=== PATIENT | female | born 1990 | race Caucasian/White ===

== ENCOUNTER 2018-10-28 20:34 | Emergency (ER) | payer MEDICAID ==
[~2018-10-28] VITALS: Ht 154.9 cm; Wt 59.0 kg
[2018-10-28 20:45] VITALS: BP 128/97
[2018-10-28] MEDS ORDERED: AMOX500C PO (21:02)
--- NOTE | 2018-10-28 21:03 | PHYS DOC ---
Adult General Chief Complaint Chief Complaint: DENTAL PROBLEM HPI HPI Patient is a 28 year old female who presents with dental pain to her upper left gum. The patient has braces in place. She sees [facility] for her orthodontia. She states that she is aware that she has a bad tooth. She denies fever or headache. (LISSETT JASON APRN) Review of Systems Review of Systems Constitutional: Denies fever or chills [] Eyes: Denies change in visual acuity, redness, or eye pain [] HENT: See history of present illness Respiratory: Denies cough or shortness of breath [] Cardiovascular: No additional information not addressed in HPI [] Neurologic: Denies headache, focal weakness or sensory changes [] Endocrine: Denies polyuria or polydipsia [] All other systems were reviewed and found to be within normal limits, except as documented in this note. (LISSETT JASON APRN) Physical Exam Physical Exam Constitutional: Well developed, well nourished, no acute distress, non-toxic appearance. [] HENT: Normocephalic, atraumatic, bilateral external ears normal, mild erythema to the upper left gum Eyes: PERRLA, EOMI, conjunctiva normal, no discharge. [] Neck: Normal range of motion, no tenderness, supple, no stridor. [] Cardiovascular:Heart rate regular rhythm, no murmur [] Lungs & Thorax: Bilateral breath sounds clear to auscultation [] Abdomen: Bowel sounds normal, soft, no tenderness, no masses, no pulsatile masses. [] Neurologic: Alert and oriented X 3, normal motor function, normal sensory function, no focal deficits noted. [] Psychologic: Affect normal, judgement normal, mood normal. [] (LISSETT JASON APRN) Current Patient Data Vital Signs Vital Signs Date Time Temp Pulse Resp B/P (MAP) Pulse Ox O2 Delivery O2 Flow Rate FiO2 10/28/18 20:45 98.7 95 19 128/97 (107) 97 Room Air 98.7 (AMARORICCI BRANDON DO) EKG EKG [] (LISSETT JASON APRN) Radiology/Procedures Radiology/Procedures [] (LISSETT JASON APRN) Course & Med Decision Making Course & Med Decision Making Pertinent Labs and Imaging studies reviewed. (See chart for details) [] (LISSETT JASON APRN) Dragon Disclaimer Dragon Disclaimer This electronic medical record was generated, in whole or in part, using a voice recognition dictation system. (LISSETT JASON APRN) Departure Departure Impression: Primary Impression: Infected tooth Disposition: HOME, SELF-CARE Condition: STABLE Patient Instructions: Toothache-Brief Additional Instructions: Take the medication as directed. Follow-up with your dentist for evaluation of your tooth at an earliest available appointment. If worsening return to the emergency department. Scripts Amoxicillin (AMOXICILLIN) 500 Mg Capsule 2 CAP PO BID for dental infection, #40 CAP Prov: LISSETT JASON APRN 10/28/18 Attending Signature Attending Signature I have reviewed the PA/SWITCHING CLERK's note and plan of care. I was available for consultation as needed during the patient's visit in the emergency department. I agree with the clinical impression, plan, and disposition. (RICCI AMARO DO) LISSETT JASON APRN Oct 28, 2018 21:03 RICCI AMARO DO Nov 01, 2018 05:06
== END 2018-10-28 21:25 | disposition home or self-care (01) ==
LOC: ER 20:34
DX: K04.7 Periapical abscess without sinus (principal)
CPT/HCPCS: 99283

== ENCOUNTER 2019-03-18 15:51 | Emergency (ER) | payer SELFPAY ==
[2019-02-23 00:32] VITALS: BP 109/84
[~2019-03-18 15:51] MED LIST: AMOX500C PO
[2019-03-19] MEDS ORDERED: ACET-704 PO (13:18)
[2019-03-19] MEDS ORDERED: AMOX500T PO (13:18)
== END 2019-03-18 17:18 | disposition left against medical advice (07) ==
LOC: ER 15:51
DX: K08.89 Other specified disorders of teeth and supporting structures (principal); Z53.21 Procedure and treatment not carried out due to patient leaving prior to being seen by health care provider

== ENCOUNTER 2019-03-19 12:22 | Emergency (ER) | payer SELFPAY ==
[~2019-03-19] VITALS: Ht 154.9 cm; Wt 56.9 kg
[2019-03-19 12:46] VITALS: BP 109/62
[2019-03-19] MEDS ORDERED: ACET-704 PO (13:18)
[2019-03-19] MEDS ORDERED: AMOX500T PO (13:18)
--- NOTE | 2019-03-19 13:19 | PHYS DOC ---
Past Medical History Past Medical History: No Pertinent History Past Surgical History: Tonsillectomy, Other Additional Past Surgical Histo: D&C Additional Information: 3 cigarettes daily Alcohol Use: None Drug Use: None Adult General Chief Complaint Chief Complaint: DENTAL PROBLEM HPI HPI Patient is a 28 year old female with no significant medical history who presents to the ED today complaining of a sharp and throbbing intermittent left upper gum dental pain that began 4 weeks ago after she broke her tooth eating candy. Patient denies any fever. Denies any trismus. She states she has followed up with the dental clinic and they $200 which she does not have. Review of Systems Review of Systems Constitutional: Denies fever or chills [] Eyes: Denies change in visual acuity, redness, or eye pain [] HENT: Reports dental pain.Denies nasal congestion or sore throat [] Musculoskeletal: Denies back pain or joint pain [] Integument: Denies rash or skin lesions [] Neurologic: Denies headache, focal weakness or sensory changes [] All other systems were reviewed and found to be within normal limits, except as documented in this note. Allergies Allergies Allergies Coded Allergies Type Severity Reaction Last Updated Verified Influenza Virus Vaccines Allergy Intermediate rash 03/19/19 Yes Physical Exam Physical Exam Constitutional: Well developed, well nourished, no acute distress, non-toxic appearance. [] HENT: Normocephalic, atraumatic, bilateral external ears normal, oropharynx moist, no oral exudates, nose normal. [] tooth #14 is broken and decayed, no gum erythema. No dental abscess Skin: Warm, dry, no erythema, no rash. [] Back: No tenderness, no CVA tenderness. [] Extremities: No tenderness, no cyanosis, no clubbing, ROM intact, no edema. [] Neurologic: Alert and oriented X 3, normal motor function, normal sensory function, no focal deficits noted. [] Psychologic: Affect normal, judgement normal, mood normal. [] Current Patient Data Vital Signs Vital Signs Date Time Temp Pulse Resp B/P (MAP) Pulse Ox O2 Delivery O2 Flow Rate FiO2 03/19/19 12:46 98.3 74 16 109/62 (78) 99 Room Air 98.3 EKG EKG [] Radiology/Procedures Radiology/Procedures [] Course & Med Decision Making Course & Med Decision Making Pertinent Labs and Imaging studies reviewed. (See chart for details) This is a 28-year-old female patient with diagnosis of infected dental caries. Discharged on amoxicillin. Follow-up with the dentist in 1-2 weeks. Dragon Disclaimer Dragon Disclaimer This electronic medical record was generated, in whole or in part, using a voice recognition dictation system. Departure Departure Impression: Primary Impression: Infected dental caries Disposition: HOME, SELF-CARE Condition: STABLE Referrals: NO PCP (PCP) Follow-up with her dentist Patient Instructions: Dental Caries Additional Instructions: You were evaluated in the emergency room for dental infection. Take the prescribed antibiotics until completed. Follow-up with your dentist in one week. Scripts Acetaminophen With Codeine (TYLENOL WITH CODEINE #3 TABLET) 1 Each Tablet 1 TAB PO PRN Q6HRS PRN for PAIN, #20 TAB Prov: CELESTINO HALL APRN 03/19/19 Amoxicillin (AMOXICILLIN) 500 Mg Tablet 1 TAB PO BID, #20 TAB Prov: CELESTINO HALL APRN 03/19/19 CELESTINO HALL APRN Mar 19, 2019 13:19
== END 2019-03-19 13:26 | disposition home or self-care (01) ==
LOC: ER 12:22
DX: K02.9 Dental caries, unspecified (principal); F17.210 Nicotine dependence, cigarettes, uncomplicated; Z90.89 Acquired absence of other organs; Z88.7 Allergy status to serum and vaccine
CPT/HCPCS: 99283